=== PATIENT | male | born 1985 | race Two or more races ===

== ENCOUNTER 2017-02-16 19:31 | Emergency (ER) | payer BC, OTHER ==
[~2017-02-16] VITALS: Ht 170.2 cm; Wt 97.5 kg
[~2017-02-16 19:31] MED LIST: CYCL10TA2 PO; HYDR-971 PO; PRED20TA PO
[2017-02-16 20:03] VITALS: BP 149/98
[2017-02-16] MEDS ORDERED: CYCL10TA2 PO (20:27)
--- NOTE | 2017-02-16 20:27 | PHYS DOC ---
Past Medical History Past Medical History: No Pertinent History Past Surgical History: No Surgical History Alcohol Use: Occasionally Drug Use: None Adult General Chief Complaint Chief Complaint: LOWER BACK PAIN OR INJURY [facility] HPI Patient is a 31 year old male presents emergency Department with his the patient is Vietnamese-speaking only and has is interpreting for him. Patient states that he was trying to lift something heavy tonight when his back gave out. He had no loss of bowel or bladder. He denies any numbness or tingling down into his feet. He does state he has some tingling down the back side of bilateral legs. He has taken ibuprofen at home for pain and discomfort. Review of Systems Review of Systems Constitutional: Denies fever or chills [] Eyes: Denies change in visual acuity, redness, or eye pain [] HENT: Denies nasal congestion or sore throat [] Respiratory: Denies cough or shortness of breath [] Cardiovascular: No additional information not addressed in HPI [] GI: Denies abdominal pain, nausea, vomiting, bloody stools or diarrhea [] : Denies dysuria or hematuria [] Musculoskeletal: back pain denies joint pain [] Integument: Denies rash or skin lesions [] Neurologic: Denies headache, focal weakness or sensory changes [] Endocrine: Denies polyuria or polydipsia [] Allergies Allergies Allergies Coded Allergies Type Severity Reaction Last Updated Verified No Known Drug Allergies 05/30/16 No Physical Exam Physical Exam Constitutional: Well developed, well nourished, no acute distress, non-toxic appearance. [] HENT: Normocephalic, atraumatic, bilateral external ears normal, oropharynx moist, no oral exudates, nose normal. [] Eyes: PERRLA, EOMI, conjunctiva normal, no discharge. [] Neck: Normal range of motion, no tenderness, supple, no stridor. [] Cardiovascular:Heart rate regular rhythm, no murmur [] Lungs & Thorax: Bilateral breath sounds clear to auscultation [] Skin: Warm, dry, no erythema, no rash. [] Back: No thoracic spine, lumbar spine tenderness, no crepitus no deformities and no step-offs noted. Extremities: No tenderness, no cyanosis, no clubbing, ROM intact, no edema. Peripheral pulse 2+ cap refill brisk < 2 seconds. Neurologic: Alert and oriented X 3, normal motor function, normal sensory function, no focal deficits noted. [] Psychologic: Affect normal, judgement normal, mood normal. [] Current Patient Data Vital Signs Vital Signs Date Time Temp Pulse Resp B/P (MAP) Pulse Ox O2 Delivery O2 Flow Rate FiO2 02/16/17 20:03 98.3 75 20 149/98 (115) 98 Room Air 98.3 EKG EKG [] Radiology/Procedures Radiology/Procedures [] Course & Med Decision Making Course & Med Decision Making Pertinent Labs and Imaging studies reviewed. (See chart for details) Spoke with patient via the healthcare interpreter, instructed her that we would be providing a prescription for Flexeril this as a muscle relaxer which will cause drowsiness do not take any be alert and oriented. Also recommended ibuprofen 800 mg every 8 hours. The was requesting via the patient for the other medication he was prescribed the last time he was here which was hydrocodone. Instructed the family and patient that Flexeril and nonsteroidal anti- inflammatories as the medications of choice for back strains and pains. Also recommended that he needs to follow-up with his primary care physician for further back problems in which he can provide physical therapy for to strengthen the back. Patient will be discharged home in stable condition signs symptoms to return back to the emergency department has been provided. Patient and agree with discharge instructions treatment regimens and follow-up recommendations. [] Dragon Disclaimer Dragon Disclaimer This electronic medical record was generated, in whole or in part, using a voice recognition dictation system. Departure Departure Impression: Primary Impression: Lumbar strain Disposition: HOME, SELF-CARE Condition: STABLE Referrals: NO PCP (PCP) Patient Instructions: Back Pain, Adult, [id number] Additional Instructions: Activity as tolerated. Medications as prescribed. Ibuprofen 800 mg every 8 hours with food stop taking few develop an upset stomach. Flexeril as a muscle relaxer do not take any be alert and oriented. Ice packs on 20 minutes off 20 minutes several times a day. Follow-up to primary care physician next 7-10 days. Return back to emergency department sign symptoms of become worse. Scripts Cyclobenzaprine Hcl (CYCLOBENZAPRINE HCL) 10 Mg Tablet 10 MG PO TID, #30 TAB Prov: JACK NATHAN APRN 02/16/17 JACK NATHAN APRN Feb 16, 2017 20:27
[2017-02-16] MEDS ORDERED: CYCLOBENZAPRINE 10 MG TABLET. PO ONE (20:45)
[2017-02-16] MEDS ORDERED: IBUPROFEN 800 MG TABLET. PO ONE (20:45)
== END 2017-02-16 20:45 | disposition home or self-care (01) ==
LOC: ER 19:31
DX: S39.012A Strain of muscle, fascia and tendon of lower back, initial encounter (principal); X50.0XXA Overexertion from strenuous movement or load, initial encounter; Y93.89 Activity, other specified; Y99.8 Other external cause status; Y92.89 Other specified places as the place of occurrence of the external cause
CPT/HCPCS: 99283